=== PATIENT | male | born 2000 | race African-American/Black ===

== ENCOUNTER 2020-08-18 22:37 | Emergency (ER) | payer OTHER ==
[~2020-08-18] VITALS: Ht 167.6 cm; Wt 86.2 kg
--- NOTE | 2020-08-18 23:13 | PHYS DOC ---
Adult General Chief Complaint Chief Complaint: ASTHMA HPI HPI Patient is a 19-year-old male with a past medical history of asthma who presents with a chief complaint of medication refill needed and need for breathing/albuterol treatment. States he is out of all his medications and has been trying to get in to establish care with a primary care physician at [facility] but has not been able to yet. Denies fevers, cold/flu symptoms, chest pain, shortness of breath, abdominal pain, nausea, vomiting, diarrhea. States he thinks he had a little bit of wheeze earlier. Denies any alcohol, tobacco or drug use. Review of Systems Review of Systems Review of systems otherwise unremarkable except noted in HPI Allergies Allergies Allergies Coded Allergies Type Severity Reaction Last Updated Verified No Known Drug Allergies 08/18/20 No Physical Exam Physical Exam Constitutional: Well developed, well nourished, no acute distress, non-toxic appearance. [] HENT: Normocephalic, atraumatic, bilateral external ears normal, oropharynx moist, no oral exudates, nose normal. [] Neck: Normal range of motion, no tenderness, supple, no stridor. [] Cardiovascular:Heart rate regular rhythm, no murmur [] Lungs & Thorax: Bilateral breath sounds with normal airflow. Possibly scant mild end expiratory wheeze on the right. Abdomen: soft, no tenderness, no masses, no pulsatile masses. [] Skin: Warm, dry, no erythema, no rash. [] Extremities: No tenderness, no cyanosis, no clubbing, ROM intact, no edema. [] Neurologic: Alert and oriented X 3, normal motor function, normal sensory function, no focal deficits noted. [] Psychologic: Affect normal, judgement normal, mood normal. [] EKG EKG [] Radiology/Procedures Radiology/Procedures [] Heart Score C/O Chest Pain: No Risk Factors: Risk Factors: DM, Current or recent (<one month) smoker, HTN, HLP, family history of CAD, obesity. Risk Scores: Risk Factors: DM, Current or recent (<one month) smoker, HTN, HLP, family history of CAD, obesity. Course & Med Decision Making Course & Med Decision Making Patient is a 19-year-old male with asthma who presents for medication refill and albuterol treatment Vital signs not concerning. Physical exam noted above. Patient given albuterol inhaler treatment in the ED. Patient alert and oriented no acute distress. Does not appear ill, toxic or in any sort of respiratory distress. Gait patient medication refills. Gave contact information for local primary care physician. Gave strict return precautions to the ED. Patient grateful, verbalized understanding and agreed with plan of discharge. [] Dragon Disclaimer Dragon Disclaimer This electronic medical record was generated, in whole or in part, using a voice recognition dictation system. Departure Departure: Impression: Primary Impression: Asthma Disposition: 01 DC HOME SELF CARE/HOMELESS Condition: GOOD Referrals: NON,STAFF (PCP) Patient Instructions: Asthma Attacks, Prevention, Asthma, Acute Bronchospasm Additional Instructions: Please read all the attached information. Please use your medications as prescribed. Please follow-up with your primary care physician or the primary care physician at the number provided for you for continued asthma medications and management. Come back to the emergency department with new or concerning symptoms. Scripts Fluticasone Propionate (FLOVENT 110MCG HFA) 12 Gm Aer.w.adap 2 PUFF IH BID for SOB, wheezing, #1 INHALER 2 Refills Prov: YAMILE TOMAS MD 08/18/20 Albuterol Sulfate (PROVENTIL HFA INHALER) 6.7 Gm Hfa.aer.ad 2 PUFF INH PRN Q4HRS PRN for SOB, wheezing for 10 Days, #1 EACH 0 Refills Prov: YAMILE TOMAS MD 08/18/20 YAMILE TOMAS MD Aug 18, 2020 23:13
[2020-08-18] MEDS ORDERED: ALBUTEROL SULFATE 8GM INHALER. INH ONE (23:15)
[2020-08-18] MEDS ORDERED: DEXAMETHASONE 4 MG TABLET PO ONE (23:15)
[2020-08-18 23:16] VITALS: BP_SYST 147
[2020-08-18] MEDS ORDERED: ALBU2.5V8 INH (23:21)
[2020-08-18] MEDS ORDERED: FLUT12AE IH (23:21)
== END 2020-08-18 23:46 | disposition home or self-care (01) ==
LOC: ER 22:37
DX: J45.909 Unspecified asthma, uncomplicated (principal); Z76.0 Encounter for issue of repeat prescription
CPT/HCPCS: 94640; 99283; J8540; 94664